=== PATIENT | female | born 1960 | race Caucasian/White ===

== ENCOUNTER 2016-07-22 12:46 | Emergency (ER) | payer MEDICAID, OTHER ==
[~2016-07-22] VITALS: Ht 157.5 cm; Wt 63.5 kg
--- NOTE | 2016-07-22 13:31 | Emergency Room Report ---
History of Present Illness General Chief Complaint: Lower Extremity Injury Source: Patient (CHU CABRERA) Present Illness HPI 55-year-old female complains of right ankle pain times one day. States that she was at work when she noticed that her right ankle started to have pain while she was walking up and down the stairs. States that she is actually remember injuring it but that the pain was worse with walking up stairs. She says she woke up this morning and noticed that her right lateral malleolus was red, swollen, and tender. Denies taking any other C. medication and that there are no relieving factors. Denies any history of gout and has hx of abx use in May for dental procedure.. (CHU CABRERA) Allergies: Coded Allergies: LATEX (Verified Allergy, Unknown, 07/22/16) Patient History Past Medical History: see triage record Last Menstrual Period: 2 years ago Now: No Reviewed Nursing Documentation: PMH: Agreed, PSxH: Agreed (CHU CABRERA) Nursing Documentation-PMH Past Medical History: No History, Except For (CHU CABRERA) Review of Systems All Other Systems: negative except mentioned in HPI (CHU CABRERA) Physical Exam Vital Signs Date Time Temp Pulse Resp B/P Pulse Ox O2 Delivery O2 Flow Rate FiO2 07/22/16 12:56 16 157/96 Sp02 EP Interpretation: reviewed, normal General Appearance: no apparent distress, alert, GCS 15, non-toxic Head: normocephalic, atraumatic Eyes: bilateral eye normal inspection ENT: hearing grossly normal, no angioedema, normal voice Neck: full range of motion, supple/symm/no masses Respiratory: chest non-tender, lungs clear, normal breath sounds, speaking full sentences Cardiovascular #1: regular rate, rhythm, no edema Cardiovascular #2: 2+ dorsalis pedis (R), 2+ dorsalis pedis (L) Musculoskeletal: back normal, gait/station normal, normal range of motion, non- tender, inflammation, swelling - right latteral mallelous, tender - right lateral mallelous Neurologic: alert, oriented x3, responsive, motor strength/tone normal, sensory intact, speech normal Psychiatric: judgement/insight normal, memory normal, mood/affect normal, no suicidal/homicidal ideation Skin: normal color, warm/dry, well hydrated, other - local erythema at right lateral mallelous Lymphatic: no adenopathy (CHU CABRERA) Medical Decision Making PA Attestation Dr. Johansen is my supervising physician with whom patient management has been discussed with. (CHU CABRERA) Diagnostic Impression: Primary Impression: Cellulitis and abscess of lower extremity Ruled Out: Ankle fracture, Gout attack ER Course Pt. presents to the ED c/o right ankle pain x 1 day Ddx considered but are not limited to fracture, gout and cellulitis Vital signs: are WNL, pt. is afebrile H&PE are most consistent with primary cellulitis ORDERS: XRay of ankle, CBC, CMP, Uric Acid ED INTERVENTIONS: none required at this time. DISCHARGE: At this time pt. is stable for d/c to home. Will provide printed patient care instructions, and any necessary prescriptions. Care plan and follow up instructions have been discussed with the patient prior to discharge. Laboratory Tests Test 07/22/16 13:40 White Blood Count 7.1 K/UL (4.8-10.8) Red Blood Count 4.62 M/UL (4.20-5.40) Hemoglobin 13.5 G/DL (12.0-16.0) Hematocrit 41.2 % (37.0-47.0) Mean Corpuscular Volume 89 FL (80-99) Mean Corpuscular Hemoglobin 29.3 PG (27.0-31.0) Mean Corpuscular Hemoglobin Concent 32.8 G/DL (32.0-36.0) Red Cell Distribution Width 12.0 % (11.6-14.8) Platelet Count 262 K/UL (150-450) Mean Platelet Volume 7.3 FL (6.5-10.1) Neutrophils (%) (Auto) 52.0 % (45.0-75.0) Lymphocytes (%) (Auto) 36.5 % (20.0-45.0) Monocytes (%) (Auto) 8.5 % (1.0-10.0) Eosinophils (%) (Auto) 2.0 % (0.0-3.0) Basophils (%) (Auto) 0.9 % (0.0-2.0) Sodium Level 140 mEQ/L (135-145) Potassium Level 3.8 mEQ/L (3.4-4.9) Chloride Level 100 mEQ/L (98-107) Carbon Dioxide Level 25 mEQ/L (20-30) Anion Gap 15 (5-15) Blood Urea Nitrogen 16 mg/dL (7-23) Creatinine 0.9 mg/dL (0.5-0.9) Estimate Glomerular Filtration Rate > 60 mL/min (>60) Glucose Level 103 mg/dL (74-106) Uric Acid 4.6 mg/dL (3.0-7.5) Calcium Level 9.3 mg/dL (8.6-10.2) Total Bilirubin 0.6 mg/dL (0.0-1.2) Aspartate Amino Transferase (AST) 16 U/L (5-40) Alanine Aminotransferase (ALT) 18 U/L (3-33) Alkaline Phosphatase 56 U/L (35-104) Total Protein 6.2 g/dL (6.6-8.7) L Albumin 4.4 g/dL (3.5-5.2) Globulin 1.8 g/dL Albumin/Globulin Ratio 2.4 (1.0-2.7) (CHU CABRERA P.A.) ER Course I examined this patient and agree with the assessment and treatment plan. I also reviewed the xrays and agree with the written interpretation by PA. (Troy Johansen M.D.) Other X-Ray Diagnostic Results Other X-Ray Diagnostic Results : X-Ray Ordered: right ankle Date: Jul 22, 2016 EP Interpretation: Yes Findings: no fractures, no dislocation, no soft tissue swelling Number of Views: 3 (CHU CABRERA P.A.) Last Vital Signs Date Time Temp Pulse Resp B/P Pulse Ox O2 Delivery O2 Flow Rate FiO2 07/22/16 12:56 16 157/96 Status: unchanged (CHU CABRERA P.A.) Disposition: HOME, SELF-CARE Condition: Stable Scripts Clindamycin Hcl (CLINDAMYCIN HCL) 300 Mg Capsule 300 MG ORAL TID for 10 Days, #30 CAP Prov: CHU CABRERA P.A. 07/22/16 Trimethoprim/Sulfamethoxazole 160/800* (BACTRIM DS TABLET*) 1 Each Tablet 1 TAB ORAL TWICE A DAY for 10 Days, #20 TAB Prov: CHU CABRERA 07/22/16 Patient Instructions: Cellulitis Additional Instructions: Take medication as directed. Follow up with PCP in the next 5-7 days for wound check. Patient instructed to take ibuprofen 600mg as needed for pain. Advised patient to keep site of infection elevated above the level of their heart 3 or 4 times a day, for 30 minutes each time to help reduce swelling. Patient is to keep the infected area clean and dry. They can take a shower or bath, but be sure to pat the area dry with a towel afterward. Patient instructed to not put any antibiotic ointments or creams on the area. Patient should come back sooner if their symptoms do not get better within 3 days of starting treatment or if the red area gets bigger, more swollen, or more painful. CHU CABRERA Jul 22, 2016 13:31 Troy Johansen M.D. Jul 26, 2016 06:42
[2016-07-22 14:11] LABS: BASOPHILS % (AUTO) 0.9 % (0.0-2.0); LYMPHOCYTES % (AUTO) 36.5 % (20.0-45.0); MEAN CORPUSCULAR HEMOGLOBIN 29.3 PG (27.0-31.0); MEAN CORPUSCULAR HGB CONC 32.8 G/DL (32.0-36.0); MEAN CORPUSCULAR VOLUME 89 FL (80-99); MEAN PLATELET VOLUME 7.3 FL (6.5-10.1); MONOCYTES % (AUTO) 8.5 % (1.0-10.0); PLATELET COUNT 262 K/UL (150-450); RED BLOOD COUNT 4.62 M/UL (4.20-5.40); WHITE BLOOD COUNT 7.1 K/UL (4.8-10.8)
[2016-07-22 14:35] LABS: ALANINE AMINOTRANSFERASE 18 U/L (3-33); ALBUMIN/GLOBULIN RATIO 2.4 (1.0-2.7); ANION GAP 15 (5-15); ASPARTATE AMINO TRANSFERASE 16 U/L (5-40); CALCIUM 9.3 mg/dL (8.6-10.2); CARBON DIOXIDE 25 mEQ/L (20-30); CHLORIDE 100 mEQ/L (98-107); CREATININE 0.9 mg/dL (0.5-0.9); GLOMERULAR FILTRATION RATE > 60 mL/min (>60); HEMOLYSIS 7; POTASSIUM 3.8 mEQ/L (3.4-4.9); SODIUM 140 mEQ/L (135-145); TOTAL PROTEIN 6.2 g/dL (6.6-8.7)
[2016-07-22] MEDS ORDERED: BACTRIM DS TAB1 EAC1 ORAL (14:45)
[2016-07-22] MEDS ORDERED: CLINDAMYCIN HC300 MG ORAL (14:45)
[2016-07-22 15:04] VITALS: BP 145/86
--- NOTE | 2016-07-23 11:24 | Diagnostic Imaging Report ---
Indication: Pain Comparison: None Findings: 3 views of the right ankle obtained. No acute fracture, malalignment, periostitis, or osteochondral defects are identified. Tissue swelling is present. Plantar calcaneal spur noted. Impression: No acute injury
== END 2016-07-22 15:15 | disposition home or self-care (01) ==
LOC: EMR 14:36
DX: L03.115 Cellulitis of right lower limb (principal); Z91.040 Latex allergy status
CPT/HCPCS: 36415; 80053; 84550; 85025; 99284

== ENCOUNTER 2016-12-19 12:02 | Emergency (ER) | payer MEDICAID, OTHER ==
[~2016-12-19] VITALS: Ht 157.5 cm; Wt 67.1 kg
[~2016-12-19 12:02] MED LIST: BACTRIM DS TAB1 EAC1 ORAL; CLINDAMYCIN HC300 MG ORAL
--- NOTE | 2016-12-19 12:34 | Emergency Room Report ---
History of Present Illness General Chief Complaint: Lower Extremity Injury Present Illness HPI The patient is a 56-year-old female presenting with left foot pain which began 2 days prior. The patient states that she was at work and a coworker stepped onto her foot while she was walking. She then felt a sharp pain to the inside of the left ankle. She states that she initially noticed swelling to the area and applied ice and has taken Motrin which have helped. Pain has decreased and is now a 3/10 dull ache and does not radiate. Worse with walking. She denies previous injury. She denies any other symptoms including numbness, tingling, bruising Allergies: Coded Allergies: LATEX (Verified Allergy, Unknown, 07/22/16) Patient History Past Medical History: see triage record Pertinent Family History: none Reviewed Nursing Documentation: PMH: Agreed, PSxH: Agreed Review of Systems All Other Systems: negative except mentioned in HPI Physical Exam Vital Signs Date Time Temp Pulse Resp B/P Pulse Ox O2 Delivery O2 Flow Rate FiO2 12/19/16 12:15 98.4 89 20 171/111 97 Room Air Sp02 EP Interpretation: reviewed, normal General Appearance: no apparent distress, alert, GCS 15, non-toxic Head: normocephalic, atraumatic Eyes: bilateral eye PERRL, bilateral eye normal inspection ENT: hearing grossly normal, normal pharynx, no angioedema, normal voice Musculoskeletal: normal inspection, digits/nails normal, normal range of motion , no calf tenderness, tender - TTP over the medial L ankle Neurologic: alert, oriented x3, responsive, motor strength/tone normal, sensory intact, speech normal Psychiatric: judgement/insight normal, memory normal, mood/affect normal, no suicidal/homicidal ideation Skin: normal color, no rash, warm/dry, well hydrated Lymphatic: no adenopathy Procedures Splinting Splinting : Consent: Verbal Location: L ankle/foot Pre-Made Type: [place] wrap Pre-Proc Neuro Vasc Exam: normal Post-Proc Neuro Vasc Exam: normal Patient Tolerated: Well Complications: None Medical Decision Making PA Attestation Dr. Johansen is my supervising physician. Patient management was discussed with my supervising physician Diagnostic Impression: Primary Impression: Contusion of left foot Qualified Codes: S90.32XA - Contusion of left foot, initial encounter ER Course The patient is a 56-year-old female presenting with left foot pain which began 2 days prior. Ddx considered include but not limited to sprain/strain, fracture, contusion Physical exam: L ankle shows no edema or ecchymosis. Full AROM. TTP inferior to medial mal. Normal gait X-rays unremarkable An [place] wrap was placed over the left ankle and the patient is provided crutches. She is given rice instructions and a prescription for Motrin. ER precautions given Other X-Ray Diagnostic Results X-Ray ordered: L ankle # of Views/Limited Vs Complete: 3 View EP Interpretation: Yes Interpretation: no fractures, no dislocation, no soft tissue swelling Indication: Pain Impression: No acute disease Interpreting ER Provider: Dr. Latanya GONZALEZ Scribe Text I am acting as scribe for my supervising physician. My supervising physician's interpretation of the L ankle xrays are there are no fractures, dislocations or soft tissue swelling. Last Vital Signs Date Time Temp Pulse Resp B/P Pulse Ox O2 Delivery O2 Flow Rate FiO2 12/19/16 12:15 98.4 89 20 171/111 97 Room Air Status: improved Disposition: HOME, SELF-CARE Condition: Improved Scripts Ibuprofen* (MOTRIN*) 600 Mg Tablet 600 MG ORAL Q8H Y for For Pain, #30 TAB 0 Refills Prov: HENRY BEAUCHAMP 12/19/16 HENRY BEAUCHAMP Dec 19, 2016 12:34
[2016-12-19] MEDS ORDERED: IBUPROFEN600 MG ORAL (12:59)
[2016-12-19 13:13] VITALS: BP 162/89
--- NOTE | 2016-12-19 15:01 | Diagnostic Imaging Report ---
Indications: Left ankle pain Technique: 3 views left ankle. Findings: Comparison: None No fracture, dislocation, joint space widening or reaction , surrounding soft tissue swelling/foreign body/gas, or other acute changes are identified. Prominent spurs emanate from posterior and plantar aspects of calcaneus. IMPRESSION: No evidence of acute abnormality of the left ankle Calcaneal enthesophytes.
== END 2016-12-19 13:22 | disposition home or self-care (01) ==
LOC: EMR 12:37
DX: S90.32XA Contusion of left foot, initial encounter (principal); W51.XXXA Accidental striking against or bumped into by another person, initial encounter; Y92.511 Restaurant or cafe as the place of occurrence of the external cause; Y99.0 Civilian activity done for income or pay; Z91.040 Latex allergy status
CPT/HCPCS: 29540; 99283